=== PATIENT | female | born 1990 ===

== ENCOUNTER 2023-11-26 11:35 | Outpatient (AMB) | payer BC, SELFPAY ==
--- NOTE | 2023-11-26 11:51 | AM.OFFWIN_ITS ---
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 She reports that she is 6 months . Has an IUD. Denies chance of . Reports that 2 weeks ago she started to experience increased vaginal discharge which she describes as smelling fishy, worse after intercourse or showering. In addition she reports some discomfort on the external genitalia when voiding. She felt like maybe she had a fever last night. To treat her symptoms she was increasing her fluid and drinking cranberry juice. She denies any recent exposure to antibiotics. She does have some external itch. She denies any nausea, vomiting, back pain, abdominal pain. Exam Awake alert oriented, no acute distress Mucous membranes moist Regular rate and rhythm No suprapubic tenderness No CVAT bilat Offered and declined a human resources operations director for the vaginal exam, external vaginal exam performed only, yellow stringy fishy smelling discharge noticed at the vaginal introitus Plan: Ua negative. Treat for BV. Requested pill over cream. No etoh while taking medication. Edu provided along w/ reasons to RTO or seek additional care This note is constructed using voice recognition software. While every effort has been made to ensure accuracy in assisted living manager, still errors may have been included Sometimes, these errors may affect the content or meaning of the given sentence . Total time spent caring for the patient today was 30 minutes. This includes time spent before the visit reviewing the chart, time spent during the visit, and time spent after the visit on documentation l Physical Exam Vital Signs: Last Vital Signs Temp 98.9 F 11/26/23 11:56 Pulse 77 11/26/23 11:56 Resp 15 11/26/23 11:56 BP 118/68 11/26/23 11:56 Pulse Ox 100 11/26/23 11:56 Oxygen Delivery Method Room Air 11/26/23 11:56 BMI result Body Mass Index 31.7 Results AMB Urinalysis Dipstick UR Leukocytes Small Last Edit by Sandra Yates MA on 11/26/23 12:31 UR Nitrite Negative Last Edit by Sandra Yates MA on 11/26/23 12:31 UR Urobilinogen Normal Last Edit by Sandra Yates MA on 11/26/23 12:31 UR Protein Negative Last Edit by Sandra Yates MA on 11/26/23 12:31 UR Ph 5.5 Last Edit by Sandra Yates MA on 11/26/23 12:31 UR Blood Negative Last Edit by Sandra Yates MA on 11/26/23 12:31 UR Specific [place] 1.015 Last Edit by Sandra Yates MA on 11/26/23 12:3 1 UR Ketone Negative Last Edit by Sandra Yates MA on 11/26/23 12:31 UR Bilirubin Negative Last Edit by Sandra Yates MA on 11/26/23 12:31 UR Glucose Negative Last Edit by Sandra Yates MA on 11/26/23 12:31 Results Reviewed Results Reviewed: Laboratory Last Values Urine pH (Clinic) 5.5 11/26/23 12:16 Specific [place] (Clinic) 1.015 11/26/23 12:16 Ur Protein (Clinic) Negative 11/26/23 12:16 Ur Ketones (Clinic) Negative 11/26/23 12:16 Urine Blood (Clinic) Negative 11/26/23 12:16 Urine Nitrite Negative 11/26/23 12:16 Urine Bilirubin (Clinic) Negative 11/26/23 12:16 Urobilinogen (Clinic) Normal 11/26/23 12:16 Leukocyte Esterase (Clinic) Small 11/26/23 12:16 Urine Glucose (Clinic) Negative 11/26/23 12:16 Assessment & Plan Assessment & Plan (1) Bacterial vaginosis: Code(s): N76.0 - Acute vaginitis; B96.89 - Other specified bacterial agents as the cause of diseases classified elsewhere Plan: . Orders: Orders AMB Urinalysis Dipstick Today R30.0 - Dysuria Medications: New metronidazole 500 mg PO BID 14 tabs 0RF Patient Instructions: What causes Bacterial Vaginosis? Bacterial vaginosis ? usually called BV ? is a bacterial infection. It happens when the different kinds of healthy bacteria in your vagina get out of balance and grow too much. BV is often caused by gardnerella vaginalis, the most common type of bacteria in your vagina. Anything that changes the chemistry of your vagina?s pH balance can mess with bacteria levels and lead to infection ? like douching or using vaginal deodorants and other irritating products.?Learn more about keeping your vagina healthy [email or web address]/learn/mprlqs-ekt-cibkx [email or web address]/giv-om-g-prevent-vaginitis . Bacterial vaginosis isn?t a?sexually transmitted infection [email or web address]://www.[employer]/learn/ofoc-snt-zpfsz-sex . But having sex with a new partner, or multiple partners, may increase your risk for BV. And sex sometimes leads to BV if your partner's natural genital chemistry changes the balance in your vagina and causes bacteria to grow. What are bacterial vaginosis symptoms? BV doesn?t always have symptoms, so many people don?t even know they have it. Sometimes symptoms come and go, or they?re so mild that you don?t notice them. The main symptom of BV is lots of thin?vaginal discharge?that has a strong fishy smell. The discharge may be white, dull johnson, greenish, and/or foamy. The fishy smell is often more noticeable after vaginal sex. You may have a little itching or burning when you pee, but many people don?t have noticeable irritation or discomfort. How do I treat BV? BV is usually easily cured with antibiotics ? either pills that you swallow, or a gel or cream that you put in your vagina. There are a few different antibiotics for bacterial vaginosis treatment, but the most common ones are metronidazole and clindamycin. Make sure you use all of the medicine the way your doctor says, even if your symptoms go away sooner. And don?t have sex until you finish your treatment and your infection clears up. If you have BV that keeps coming back, probiotics may help. But ask your doctor before trying any supplements. Your nurse, doctor, or?local [facility] [email or web address] ?can help you figure out the best treatment if you struggle with chronic BV. Coding Level of Care Code Est Pt Level 4 (50070) Diagnoses Bacterial vaginosis N76.0; B96.89
[2023-11-26 11:56] VITALS: BP 118/68; PULSE 77; RESP 15; TEMP 37.2; O2SAT 100; BMI 31.7
== END 2023-11-26 12:33 | disposition home or self-care (01) ==
PROVIDERS: Visit Provider Nurse Practitioner Family
DX: N76.0 Acute vaginitis (principal); B96.89 Other specified bacterial agents as the cause of diseases classified elsewhere; R30.0 Dysuria

== ENCOUNTER → 2023-11-26 11:35 | Outpatient (BNVA) | payer BC, SELFPAY | DX: N76.0 Acute vaginitis (principal); B96.89 Other specified bacterial agents as the cause of diseases classified elsewhere | CPT/HCPCS: 81002 ==